=== PATIENT | male | born 1970 | race American Indian/Alaskan Native ===

== ENCOUNTER 2021-08-21 13:34 | Emergency (ER) | payer MEDICARE ==
[2021-08-21 14:38] VITALS: BP 162/110
[2021-08-21] MEDS ORDERED: IBUPROFEN 600 MG TAB PO ONE (16:07)
--- NOTE | 2021-08-21 16:08 | Emergency Department Report ---
Upper Extremity - HPI Chief Complaint: Extremity Injury, Upper Stated Complaint: INJURY TO THE RIGHT HAND Upper Extremity: Right Wrist Occurred When: 1 Day Mechanism: Fall Symptoms: Yes Pain with Movement, Yes Limited Range of Movement, Yes Swelling Other History: 51-year-old -[place] male presents to the emergency room for right wrist pain after hitting against the door when he was bracing himself for a fall. Patient denies falling on that wrist. Patient states this pain in his difficulty for him to move his wrist. Patient reports a very past medical history of injuring that hand with tendon repair done in this hospital many years ago. ED Review of Systems ROS: Stated complaint: INJURY TO THE RIGHT HAND Other details as noted in HPI Comment: All other systems reviewed and negative ED Past Medical Hx - Medications Home Medications: Home Medications Medication Instructions Recorded Confirmed Last Taken Type Naproxen 500 mg PO BID PRN #14 tablet 08/21/21 Unknown Rx Upper Extremity Exam - Exam General: Vital signs noted. No distress. Alert and acting appropriately. Head and Torso: No HEENT Abnormality, No Neck Tenderness, No Chest/Lungs Abnormality, No Abdominal Tenderness, No Back Tenderness Shoulder Exam: Yes Normal Range of Motion in Shoulder, No Shoulder Tenderness, No Clavicle Tenderness, No Shoulder Deformity, No AC Joint Tenderness Arm Exam: No Arm/Humerus Tenderness, No Arm Deformity Elbow: No Elbow Tenderness, No Normal Range of Motion in Elbow, No Elbow Deformity Forearm: No Forearm Tenderness, No Forearm Deformity, No Pain with Pronation, No Pain with Supination Wrist: Yes Wrist Tenderness, Yes Wrist Deformity, No Normal ROM in Wrist, No Snuffbox Tenderness, No Pain with Axial Thumb Compression Hand: Yes Normal ROM in Digit(s), No Hand Tenderness, No Hand Deformity, No Digit Tenderness, No Digit(s) Deformity, No Tendon Dysfunction CMS Exam: Yes Normal Distal Pulses, Yes Normal Capillary Refill, Yes Normal Distal Sensation, No Broken Skin ED Course Vital Signs 08/21/21 14:37 Temperature 98.6 F Pulse Rate 96 H Respiratory 16 Rate Blood Pressure 162/110 [Right] O2 Sat by Pulse 96 Oximetry ED Medical Decision Making - Radiology Data Radiology results: report reviewed [facility] [address] [place] [address] XRay Report Signed Patient: DYLLAN SHAIKH MR#: [id number] : 1970 Acct:[id number] Age/Sex: 51 / M ADM Date: 08/21/21 Loc: ED Attending Dr: Ordering Physician: DANTE WALKER Date of Service: 08/21/21 Procedure(s): XR wrist 3+V RT Accession Number(s): [id number] cc: DANTE WALKER Fluoro Time In Minutes: Right wrist-4 views INDICATION: injury. COMPARISON: None. IMPRESSION: No acute osseous abnormality. Mild soft tissue swelling about the wrist. Normal alignment. Moderate long finger MTP degenerative arthrosis with subchondral cystic change. Incidental tiny osteochondroma along the thumb proximal phalanx. Signer Name: Med Shen MD Signed: 08/21/2021 4:29 PM Workstation Name: [id number] Transcribed By: JULIANO Dictated By: Med Shen MD Electronically Authenticated By: Med Shen MD Signed Date/Time: 08/21/211628 DD/ 26 TD/TT: - Medical Decision Making 51-year-old -[place] male presents to the emergency room for right wrist pain after hitting against the door when he was bracing himself for a fall. Patient denies falling on that wrist. Patient states this pain in his difficulty for him to move his wrist. Patient reports a very past medical history of injuring that hand with tendon repair done in this hospital many years ago. X-ray of right wrist and ibuprofen has been ordered. Critical care attestation.: If time is entered above; I have spent that time in minutes in the direct care of this critically ill patient, excluding procedure time. ED Disposition Clinical Impression: Contusion of right wrist, initial encounter Disposition: HOME / SELF CARE / HOMELESS Is pt being admited?: No Does the pt Need Aspirin: No Condition: Stable Instructions: Contusion, [id number], How to Use Cold Therapy, Cuac-cy-Elxp Additional Instructions: X-ray is negative for any acute fracture or any abnormalities. Pain medication and wear your wrist support. Follow-up with your primary care provider. Prescriptions: Naproxen 500 mg PO BID PRN #14 tablet PRN Reason: Pain , Severe (7-10) Referrals: PRIMARY CARE, [Primary Care Provider] - 3-5 Days VERO HOLT MD [Staff Physician] - 3-5 Days Forms: Work/School Release Form(ED) Time of Disposition: 18:41
--- NOTE | 2021-08-21 16:33 | XRay Report ---
Right wrist-4 views INDICATION: injury. COMPARISON: None. IMPRESSION: No acute osseous abnormality. Mild soft tissue swelling about the wrist. Normal alignm ent. Moderate long finger MTP degenerative arthrosis with subchondral cystic change. Incidental tiny osteochondroma along the thumb proximal phalanx. Signer Name: Med Shen MD Signed: 08/21/2021 4:29 PM Workstation Name: [id number]
== END 2021-08-21 19:25 | disposition home or self-care (01) ==
LOC: ED 13:34
DX: S60.211A Contusion of right wrist, initial encounter (principal); W22.8XXA Striking against or struck by other objects, initial encounter; Y93.89 Activity, other specified; Y92.89 Other specified places as the place of occurrence of the external cause; Y99.8 Other external cause status
CPT/HCPCS: 99283